=== PATIENT | female | born 1970 | race Caucasian/White ===

== ENCOUNTER 2017-10-11 12:17 | Emergency (ER) | payer MEDICARE ==
[2017-10-11] MEDS ORDERED: Ketorolac 30 MG/ML SDV IVPUSH ONE (13:14)
[2017-10-11] MEDS ORDERED: methylPREDNISolone Sodium Succinate 125 MG/2 ML SDV IVPUSH ONE (13:14)
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
== END 2017-10-11 14:16 | disposition home or self-care (01) ==
LOC: JP.ED 12:17
DX: M54.2 Cervicalgia (principal); F41.9 Anxiety disorder, unspecified; G89.29 Other chronic pain; Z88.5 Allergy status to narcotic agent; Z88.8 Allergy status to other drugs, medicaments and biological substances
CPT/HCPCS: 96374; 99283; J2930

== ENCOUNTER 2019-11-28 06:39 | Day surgery (SDC) | payer MEDICARE, OTHER ==
[2019-11-28] MEDS ORDERED: fentaNYL 100 MCG/2 ML SDV ONE (06:47)
[2019-11-28] MEDS ORDERED: Midazolam 1 MG/ML 2 ML SDV ONE (06:47)
[2019-11-28] MEDS ORDERED: Propofol 200 MG/20 ML SDV ONE (06:47)
[2019-11-28] MEDS ORDERED: Lactated Ringers 1,000 ML IV SCH (08:00)
[2019-11-28] MEDS ORDERED: Glycopyrrolate 0.2 MG/ML 2 ML SDV IVPUSH ONE (08:00)
[2019-11-28] MEDS ORDERED: Cyanocobalamin (Vitamin B12) 1,000 MCG/ML SDV IM ONE (08:00)
[2019-11-28] MEDS ORDERED: MVI, Adult with Vitamin K 10 ML, Thiamine 200 MG, Chromium/Copper/Mang/Selen/Zn 1 ML in... IV ONE ×4 (09:00)
[2019-11-28] MEDS ORDERED: Famotidine 20 MG/2 ML SDV IVPUSH PRN (09:26)
[2019-11-28] MEDS ORDERED: diphenhydrAMINE 50 MG/ML SDV IVPUSH PRN (10:30)
[2019-11-28] MEDS ORDERED: Iron Sucrose Complex 500 MG in Sodium Chloride 0.9% 250 ML IV ONE (10:30)
[2019-11-28] MEDS ORDERED: Hydrocortisone Sodium Succinate 100 MG/2 ML SDV IVPUSH PRN (10:30)
[2019-11-28] MEDS ORDERED: Sodium Chloride 0.9% 1,000 ML IV SCH (10:45)
--- NOTE | 2019-12-08 14:58 | OR ---
DATE OF PROCEDURE: 11/28/2019 SURGEON: Greg Carranza MD PREOPERATIVE DIAGNOSIS: Postprandial abdominal pain. POSTOPERATIVE DIAGNOSIS: Postprandial abdominal pain with a small patch of mild pouch gastritis. OPERATIVE PROCEDURE: Upper gastrointestinal endoscopy with biopsy of gastric pouch for CLOtest. ANESTHESIA: IV sedation. INDICATION FOR PROCEDURE: This is a 49-year-old status post open Mic-en-Y gastric bypass in 1997, at what was [facility] and now [facility]. This was done with an open approach. The patient did complain of some postprandial upper and mid abdominal pain. She has been on Protonix and noted no significant improvement of symptoms while on that medication. Plan is to proceed with initial upper GI endoscopy with biopsies as indicated. Potential risks including bleeding and perforation were discussed, and the patient wishes to proceed. DETAILS OF PROCEDURE: The patient was taken to the operating room and placed in a left lateral decubitus position. IV sedation was administered after which the upper GI endoscope was passed orally through the length of the esophagus into the gastric pouch and from there through the gastrojejunostomy roughly 20 cm into the Mic limb. Findings included normal larynx, hypopharynx, and upper esophageal sphincter, as well as esophageal body. No significant inflammation noted at the esophagogastric junction. Within the gastric pouch, there was a small, perhaps 1 cm, patch with some very mild redness and otherwise the gastrojejunostomy was wide open, and there were no further areas inflammation from that point and into the Mic limb. At this point, biopsies were obtained from the antrum and sent for CLOtest for H. pylori. Minimal bleeding from the biopsy site was seen and the procedure then concluded. As discussed with the patient, postoperatively, the postprandial abdominal pain that she is having most likely is related to partial small bowel obstruction, and these will often be missed by a CT scan of the abdomen, and at this point, and empiric exploration would be generally the next approach. This was discussed with the patient, and the plan will be to proceed with an exploratory laparotomy next Sunday and try to identify any points of partial obstruction and make corrections as indicated. This will need to be done as an open approach, as Dr. Macedo's gastric bypass is in that area, although retrocolic and retrogastric in that area of the Mic limb is not reasonably approachable via laparoscopic approach. Greg Carranza MD /[id number]
== END 2019-11-28 12:15 | disposition home or self-care (01) ==
LOC: JP.SDS 06:39
PROVIDERS: ATTEND Surgery
DX: K29.70 Gastritis, unspecified, without bleeding (principal); Z98.84 Bariatric surgery status
CPT/HCPCS: 43239; 87081; J2250; J2704; J3010; J3411; J3420; J3490; J7030; J7050; J7120; Q0138; J1756

== ENCOUNTER 2020-04-03 21:31 | Inpatient (IN) | payer MEDICARE, OTHER ==
[2020-04-03] MEDS ORDERED: Ondansetron 4 MG/2 ML SDV IVPUSH PRN (22:20)
[2020-04-03] MEDS: HYDROmorphone 0.5 MG/0.5 ML Syringe IVPUSH PRN (23:26)
[2020-04-03] MEDS: LORazepam 2 MG/ML SDV IVPUSH PRN (23:27)
[2020-04-03] MEDS: Metoclopramide 10 MG/2 ML SDV IV SCH (23:30)
[2020-04-04] MEDS: LORazepam 2 MG/ML SDV IVPUSH PRN (01:55)
[2020-04-04] MEDS: HYDROmorphone 0.5 MG/0.5 ML Syringe IVPUSH PRN ×2 (01:56→05:25)
[2020-04-04] MEDS: Metoclopramide 10 MG/2 ML SDV IV SCH (05:18)
[2020-04-04] MEDS: Dextrose 5%-Lactated Ringers 1,000 ML IV SCH ×2 (06:15→06:17)
[2020-04-04] MEDS ORDERED: Albuterol 8 GM Inhaler INH PRN (07:09)
[2020-04-04] MEDS ORDERED: LORazepam 1 MG Tab PO PRN (07:09)
[2020-04-04] MEDS ORDERED: Amphetamine/Dextroamphetamine Salts 10 MG Tab PO SCH ×3 (07:15→13:00)
[2020-04-04] MEDS ORDERED: Glycopyrrolate 0.2 MG/ML 2 ML SDV IVPUSH ONE (09:00)
[2020-04-04] MEDS ORDERED: Ziprasidone HCl 20 MG Cap PO SCH (09:00)
[2020-04-04] MEDS ORDERED: buPROPion 100 MG Tab.SR PO SCH (09:00)
[2020-04-04] MEDS ORDERED: cloNIDine 0.1 MG Tab PO SCH (09:00)
[2020-04-04] MEDS ORDERED: Pantoprazole 40 MG Vial IVPUSH SCH (09:00)
[2020-04-04] MEDS ORDERED: fentaNYL 100 MCG/2 ML SDV ONE (09:05)
[2020-04-04] MEDS ORDERED: Midazolam 1 MG/ML 2 ML SDV ONE (09:05)
[2020-04-04] MEDS ORDERED: Propofol 200 MG/20 ML SDV ONE (09:05)
[2020-04-04] MEDS ORDERED: Acetaminophen 325 MG Tab PO PRN (09:44)
--- NOTE | 2020-04-04 10:05 | HP ---
HISTORY OF PRESENT ILLNESS: Racquel was transferred by ambulance from the [facility] Emergency Department last evening. She reports that she ate steak on 04/02/2020 and it got stuck. She states that she has been sipping on water and everything she drinks she will vomit it up. She did try water with baking soda and chicken noodle soup and she was not able to swallow that. She presented to the emergency department in [place] with increased nausea and vomiting. In the emergency room, she did have a CT scan which showed fluid-filled dilated esophagus and stomach. Oral contrast given would traverse to GI tract, but she was only able to swallow a small amount of oral contrast. There was no mention of her having a Mic-en-Y gastric bypass surgery. This morning, Racquel states that she is feeling better. She has been just using a sponge to moisten her mouth. Reports not able to take her vitamins for several weeks and has not been able to take any of her antibiotics for H. pylori and any of her routine medications for 3 to 4 days. Reports doing yard work and getting extremely dehydrated. Racquel is scheduled for an exploratory laparotomy with release of partial small bowel obstruction, removal of remnant stomach, for chronic H. pylori refractory to medical management on 04/06/2020. She has had a preop physical. History of Mic-en-Y gastric bypass surgery 1997 at [facility]. Preop weight 239, current weight is 131 pounds 9 ounces. CURRENT MEDICATIONS: Protonix 20 mg, she takes 2 b.i.d.; albuterol inhaler 1 to 2 puffs every 4 hours p.r.n. shortness of breath; Flagyl 250 mg 1 tablet twice daily; doxycycline 100 mg b.i.d. 14 days; Gaviscon 15 to 30 mL by mouth 3 times a day after meals p.r.n.; Carafate 1 tablet before meals 4 times a day and at bedtime; Vitron-C 1 tablet b.i.d.; Flexeril 10 mg 3 times a day p.r.n. muscle spasms; Lamisil 1 tab by mouth every day for fungal infection of nail; Zofran 4 mg 1 tablet every 8 hours p.r.n. nausea; Imitrex 100 mg 1 tablet once a day as needed for migraine, may repeat in 2 hours; Penlac 8% apply topical evenly over nail at bedtime; hydrocortisone 1% cream apply topical twice daily p.r.n.; clonidine; Catapres 0.1 mg once daily; bupropion 100 mg by mouth b.i.d., Geodon 40 mg by mouth once daily; Adderall 20 mg by mouth once a day to avoid insomnia and Adderall 10 mg in the afternoon for insomnia; multivitamin 1000 mg once daily; B12 injection 1000 mcg IM as directed. ALLERGIES: TO CLINDAMYCIN, BACLOFEN, KLONOPIN, CLONAZEPAM, CODEINE, TRAMADOL. PAST MEDICAL HISTORY: Anxiety; ADHD, combined type; bipolar disorder, current episode moderate; dermatophytosis; GERD; history of Mic-en-Y gastric bypass surgery; unspecified surgical malabsorption; B12 deficiency; migraine headaches; neck pain; vitamin B12 deficiency; vitamin D deficiency, and H. pylori refractory to medical management. PAST SURGICAL HISTORY: Appendectomy, 2 C-sections, multiple EGDs, her last EGD was 11/28/2019, gastric bypass surgery, LEEP procedure, wrist fracture with reduction, open fixation, 07/31/2008. SOCIAL HISTORY: , unemployed, has 1 son aged 10. FAMILY MEDICAL HISTORY: Diabetes, hypertension, sleep apnea in mother. Father has diabetes. Brother, hypertension. Breast cancer, paternal grandmother. REVIEW OF SYSTEMS: Reports weight loss, inability to eat or drink very well for the last 2 weeks, not able to take medications including prescription and recommended vitamins after gastric bypass surgery on a regular basis for several months. CONSTITUTIONAL: No fever, chills, or night sweats. SKIN: No rashes, changes in moles or birthmarks. HEENT: No recent headache, ear pain, loss of hearing, blurred or double vision. CARDIOVASCULAR: No chest pain, palpitation. RESPIRATORY: No cough, shortness of breath. ENDOCRINE: Negative. HEMATOLOGICAL: Iron-deficiency anemia, recently had iron infusions. LYMPH: Denies any lymph node swelling. : Has no UTI signs and symptoms. Heavy abnormal period. She is scheduled to have endometrial ablation scheduled for the end of March. MUSCULOSKELETAL: Fibromyalgia, chronic pain, neck pain. NEUROLOGICAL: Migraine headaches. No history of focal neurological symptoms, spells, memory changes. PSYCHIATRIC: History of benzodiazepine dependence, social anxiety, ADHD, bipolar affective disorder. Remainder of review of systems negative for any pertinent positives or negatives. DIET: Has been on a step 4 gastric bypass diet. Last had anything to eat on 04/02/2020. Protein normally unknown. Exercise minimal. Fluids, drinks 4 bottles of water a day. Smoking: Smokes up to 1 pack a day. Caffeine: Negative. Alcohol: None. Carbonation: None. OBJECTIVE: GENERAL: Racquel Vega is a 49-year-old female. VITAL SIGNS: Height 5 feet 5 inches, weight is 131 pounds. BMI is 21. TPR at 0500; 96.2, 65, 16. Blood pressure 106/69. HEENT: Negative. NECK: Supple. HEART: Regular rate and rhythm. LUNGS: Clear. ABDOMEN: Soft, nontender. EXTREMITIES: Without peripheral edema. NEUROLOGIC: Intact. SKIN: Without rash. PSYCHIATRIC: Mood and affect appropriate. ASSESSMENT: 1. Foreign body in esophagus causing dysphagia, symptoms of nausea and vomiting. 2. H. pylori infection. 3. Small bowel obstruction. 4. Postoperative malabsorption. 5. Gastroesophageal reflux disease. 6. Status post Mic-en-Y gastric bypass surgery. 7. Low ferritin. 8. Vitamin B complex deficiency. 9. Vitamin D deficiency. 10.Vitamin B12 deficiency. 11.Smoking history. 12.Benzodiazepine dependence. 13.Bipolar disorder. 14.Central pain syndrome. 15.Fibromyalgia. 16.Anxiety. 17.Attention-deficit/hyperactivity disorder. 18.Dehydration. PLAN: 1. Schedule EGD with IV and local sedation. Case to follow 04/04/2020. Surgeon, Filiberto Degroot MD. Time to be determined. 2. Rx Robinul 0.4 mg IV on-call to OR. 3. Remain n.p.o. 4. Lactated Ringer with multivitamins 1 L daily. 5. Protonix 40 mg IV b.i.d. 6. After EGD and when patient is able to swallow without any difficulty to start home medication Adderall 20 mg in a.m. and 10 mg in the afternoon, Wellbutrin 100 mg p.o. b.i.d., Catapres, clonidine 0.1 mg daily, Geodon 40 mg p.o. daily, sumatriptan 100 mg p.o. p.r.n. migraine headache. The patient was admitted for inpatient hospital stay, approximately 4 nights 5 days depending on her postop progress. Felicita Meeks PA-C /[id number]
[2020-04-04] MEDS ORDERED: MVI, Adult with Vitamin K 10 ML, Thiamine 200 MG, Chromium/Copper/Mang/Selen/Zn 1 ML in... IV ONE ×4 (10:30)
--- NOTE | 2020-04-04 11:28 | CONS ---
DATE OF SERVICE: 04/03/2020 REFERRING PHYSICIAN: Felicita Meeks PA-C CONSULTING PHYSICIAN: Filiberto Degroot MD REASON FOR CONSULTATION: Abdominal pain. HISTORY OF PRESENT ILLNESS: This is a pleasant 49-year-old female who had a Mic-en-Y in 1998 in [place], [place]. She has had intermittent problems with this including abdominal pain. The patient is being evaluated for possible revision Mic-en-Y. She is also complicated by multiple events of H. pylori. On December 05, 2019, the patient underwent upper GI without significant abnormalities. Her pain is described as 1 to 2 out of 10, intermittent. PAST MEDICAL HISTORY: Mic-en-Y gastric bypass, history of section. REVIEW OF SYSTEMS: GENERAL: The patient is appropriate for her condition. HEENT: No symptoms. CARDIOVASCULAR: No history of myocardial infarction. RESPIRATORY: No shortness of breath. GASTROINTESTINAL: As above. GENITOURINARY: No abnormalities. MUSCULOSKELETAL: The patient has had some neck issues requiring her to be addressed in the emergency room. The remainder of review of systems was reviewed and is negative. PHYSICAL EXAMINATION: VITAL SIGNS: Temperature 97.3, blood pressure 119/71, pulse 64, respirations 16, 99% on room air. HEENT: Pupils are equal. NECK: Supple. LUNGS: Clear. CARDIOVASCULAR: Regular rhythm and rate. ABDOMEN: Minimal pain with palpation. No distention. No rebound. No guarding. EXTREMITIES: Full range of motion. NEUROLOGICAL: Oriented x3. PSYCHIATRIC: No gross depression. LABORATORY DATA: None ordered. ASSESSMENT/PLAN: The patient was taken to the operating room in the morning for EGD with dilation for possible foreign material. We discussed risks, benefits, alternatives, and limitations including, but not limited to infection, bleeding, perforation, requirement for reoperation. The patient understands these risks and wishes to proceed. Filiberto Degroot MD /[id number]
--- NOTE | 2020-04-05 08:31 | OR ---
DATE OF PROCEDURE: 04/04/2020 SURGEON: Filiberto Degroot MD PROCEDURE: EGD. FINDINGS: 1. Normal Mic-en-Y with slightly enlarged, but appropriate-sized pouch without evidence of abnormality. 2. No foreign material. COMPLICATION: None. GRINDING ROOM SUPERVISOR: None. PREOPERATIVE DIAGNOSIS: Dysphagia, concern for retained food material. POSTOPERATIVE DIAGNOSIS: Dysphagia, concern for retained food material. RISKS: Risks, benefits, alternatives, and limitations including, but not limited to infection, bleeding, and perforation were explained to the patient, who wished to proceed. PROCEDURE IN DETAIL: The patient was placed in left lateral decubitus position. The EGD scope was introduced and advanced atraumatically to the Mic-en-Y limb. The Mic-en-Y limb appeared viable, healthy without evidence of abnormality. The pouch itself was appropriately-sized. There was no evidence of narrowing, stricturing, or abnormality. No marginal ulcer. No old or new blood. No signs of Spivey's esophagus or abnormality at the GE junction. Within the esophagus itself, there was no evidence of retained foreign material. No other abnormalities were noted. The patient tolerated the procedure well. Filiberto Degroot MD /[id number]
--- NOTE | 2020-04-06 08:28 | DISCH ---
ADMISSION DIAGNOSES: 1. Dysphagia, foreign body. 2. Status post Mic-en-Y gastric bypass surgery. 3. Unspecified malabsorption. 4. Chronic Helicobacter pylori. 5. Partial small bowel obstruction. DISCHARGE DIAGNOSIS: Esophagogastroduodenoscopy with Filiberto Degroot, 04/04/2020. HISTORY: Racquel Vega presented to the emergency room in [facility] [place] [facility] was transferred to the [facility] after she said she got a piece of steak stuck. She tried for over 24 hours and continued to vomit anything that she would eat or drink. HOSPITAL COURSE: Racquel had an EGD, and it was normal. Mic-en-Y with slightly large, but appropriate-size pouch without evidence of abnormality. No foreign body. She elected to be discharged to home after the procedure stating she felt better, and she will return on Sunday04/06/2020, for already scheduled surgery. PHYSICAL EXAMINATION: GENERAL: Racquel Vega is a 49-year-old female. VITAL SIGNS: Height 5 feet 5 inches, weight is 131 pounds. TPR 96, 70, 18, and blood pressure 112/70. HEENT: Negative. NECK: Supple. HEART: Regular rate and rhythm. LUNGS: Clear. ABDOMEN: Soft and nontender. EXTREMITIES: Negative. DISPOSITION: Discharged to home. CONDITION: Stable and improving. DISCHARGE INSTRUCTIONS: Follow up for scheduled surgery on 04/06/2020. The patient to be n.p.o. Resume home medications. May shower. Normal activity, and continue with step 2 gastric bypass diet. To follow up p.r.n. if any further nausea, vomiting, fever, or chills.
== END 2020-04-04 12:11 | disposition home or self-care (01) | DRG 389 ==
LOC: JP.MS 21:31
PROVIDERS: ADMIT Surgery; ATTEND Surgery
PROC: 0DJ08ZZ Inspection of Upper Intestinal Tract, Via Natural or Artificial Opening Endoscopic (ICD-10-PCS; principal; 2020-04-03)
DX: K56.600 Partial intestinal obstruction, unspecified as to cause (principal); K91.2 Postsurgical malabsorption, not elsewhere classified; A04.8 Other specified bacterial intestinal infections; E86.0 Dehydration; R13.10 Dysphagia, unspecified; F41.9 Anxiety disorder, unspecified; F90.9 Attention-deficit hyperactivity disorder, unspecified type; F31.9 Bipolar disorder, unspecified; K21.9 Gastro-esophageal reflux disease without esophagitis; E55.9 Vitamin D deficiency, unspecified; E53.8 Deficiency of other specified B group vitamins; M79.7 Fibromyalgia; Z88.1 Allergy status to other antibiotic agents; Z88.5 Allergy status to narcotic agent; Z88.6 Allergy status to analgesic agent; Z88.8 Allergy status to other drugs, medicaments and biological substances; Z98.84 Bariatric surgery status; Z79.899 Other long term (current) drug therapy; Z87.891 Personal history of nicotine dependence
CPT/HCPCS: A9270-GY; C9113; J1170; J2060; J2250; J2704; J2765; J3010; J3411; J7120; J7121

== ENCOUNTER 2020-04-06 06:57 | Inpatient (IN) | payer MEDICARE, OTHER ==
[~2020-04-06 06:57] MED LIST: Bupivacaine 0.5% 50 ML MDV ONE; Lidocaine 1% with EPINEPHrine 1:100,000 50 ML MDV ONE; Meropenem 500 MG SDV ONE
[2020-04-06] MEDS ORDERED: Neostigmine Methylsulfate 1 MG/ML 5 ML Syringe ONE (07:04)
[2020-04-06] MEDS ORDERED: Dexamethasone 4 MG/ML SDV ONE (07:04)
[2020-04-06] MEDS ORDERED: Succinylcholine 200 MG/10 ML MDV ONE (07:04)
[2020-04-06] MEDS ORDERED: Rocuronium 50 MG/5 ML Vial ONE ×2 (07:04→08:09)
[2020-04-06] MEDS ORDERED: Ondansetron 4 MG/2 ML SDV ONE (07:04)
[2020-04-06] MEDS ORDERED: Glycopyrrolate 0.2 MG/ML 5 ML MDV ONE (07:04)
[2020-04-06] MEDS ORDERED: Propofol 200 MG/20 ML SDV ONE (07:04)
[2020-04-06] MEDS ORDERED: fentaNYL 250 MCG/5 ML SDV ONE ×2 (07:05→09:20)
[2020-04-06] MEDS ORDERED: Albuterol/Ipratropium 3.0-0.5 MG/3 ML Neb Soln NEB ONE (07:31)
[2020-04-06] MEDS ORDERED: Acetaminophen 500 MG Tab PO ONE (07:31)
[2020-04-06] MEDS: Dextrose 5%-Lactated Ringers 1,000 ML IV SCH ×3 (08:15→22:22)
[2020-04-06] MEDS ORDERED: cefOXitin 2 GM in Sodium Chloride 0.9% 50 ML IV ONE (08:30)
[2020-04-06] MEDS ORDERED: Ketamine 50 MG in Sodium Chloride 0.9% 49.5 ML IV SCH (08:45)
[2020-04-06] MEDS ORDERED: Ketamine 500 MG/5 ML MDV IV SCH (08:45)
[2020-04-06] MEDS ORDERED: Magnesium Sulfate 2 GM in Sodium Chloride 0.9% 100 ML IV SCH (08:45)
[2020-04-06] MEDS ORDERED: Ropivacaine 30 ML, dexAMETHasone 8 MG, EPINEPHrine 0.4 MG, Sodium Chloride 0.9% 47.6 ML NERVRT SCH ×4 (08:45)
[2020-04-06] MEDS ORDERED: Ondansetron 4 MG/2 ML SDV IVPUSH PRN (09:09)
[2020-04-06] MEDS ORDERED: diphenhydrAMINE 50 MG/ML SDV IVPUSH PRN (09:09)
[2020-04-06] MEDS ORDERED: Naloxone 0.4 MG/ML SDV IVPUSH PRN (09:09)
[2020-04-06] MEDS ORDERED: diphenhydrAMINE 25 MG Cap PO PRN (09:09)
[2020-04-06] MEDS: HYDROmorphone/Normal Saline 15 MG/30 ML PCA IV PRN (09:48)
[2020-04-06] MEDS ORDERED: Naloxone 0.4 MG/ML SDV IV PRN (10:00)
[2020-04-06] MEDS ORDERED: Lactated Ringers 1,000 ML ONE (10:05)
[2020-04-06] MEDS ORDERED: Labetalol 20 MG/4 ML Syringe ONE (10:08)
[2020-04-06] MEDS ORDERED: hydrOXYzine HCL 100 MG/2 ML SDV IM ONE (11:18)
[2020-04-06] MEDS ORDERED: fentaNYL 100 MCG/2 ML SDV IVPUSH ONE (11:33)
[2020-04-06] MEDS ORDERED: Calcium Gluconate 10% 1 GM/10 ML SDV IVPUSH PRN (13:00)
[2020-04-06] MEDS ORDERED: Metoclopramide 10 MG/2 ML SDV IVPUSH PRN (13:00)
[2020-04-06] MEDS ORDERED: Labetalol 20 MG/4 ML Syringe IVPUSH PRN (13:00)
[2020-04-06] MEDS ORDERED: Acetaminophen 500 MG Tab PO PRN (13:00)
[2020-04-06] MEDS ORDERED: Albuterol/Ipratropium 3.0-0.5 MG/3 ML Neb Soln INH PRN (13:00)
[2020-04-06] MEDS ORDERED: hydrOXYzine HCL 100 MG/2 ML SDV IM PRN (13:00)
[2020-04-06] MEDS: Ondansetron 4 MG/2 ML SDV IVPUSH PRN ×2 (13:35→19:36)
[2020-04-06] MEDS: cefOXitin 2 GM in Sodium Chloride 0.9% 50 ML IV SCH ×2 (13:38→19:49)
[2020-04-06] MEDS ORDERED: Scopolamine 1.5 MG Transdermal Patch TOP SCH (14:00)
[2020-04-06] MEDS: Albuterol/Ipratropium 3.0-0.5 MG/3 ML Neb Soln INH SCH ×2 (14:09→21:59)
[2020-04-06] MEDS: Acetaminophen 500 MG Tab PO SCH (15:54)
[2020-04-06] MEDS ORDERED: Pantoprazole 40 MG Vial IVPUSH SCH (16:00)
[2020-04-06] MEDS ORDERED: MVI, Adult with Vitamin K 10 ML, Thiamine 200 MG, Chromium/Copper/Mang/Selen/Zn 1 ML in... IV SCH ×4 (16:00)
[2020-04-06] MEDS: Heparin Sodium 5,000 Units/ML Vial SUBCUT SCH (19:47)
[2020-04-06] MEDS: Cyclobenzaprine 10 MG Tab PO PRN (20:41)
[2020-04-06] MEDS: diphenhydrAMINE 50 MG/ML SDV IVPUSH PRN (20:51)
[2020-04-06] MEDS: LORazepam 1 MG Tab PO PRN (20:51)
[2020-04-06] MEDS: buPROPion 100 MG Tab.SR PO SCH (22:24)
[2020-04-07] MEDS: Acetaminophen 500 MG Tab PO SCH ×3 (01:15→16:31)
[2020-04-07] MEDS: cefOXitin 2 GM in Sodium Chloride 0.9% 50 ML IV SCH ×2 (01:23→09:30)
[2020-04-07] MEDS: diphenhydrAMINE 50 MG/ML SDV IVPUSH PRN (02:06)
[2020-04-07] MEDS: Ondansetron 4 MG/2 ML SDV IVPUSH PRN (02:06)
[2020-04-07] MEDS ORDERED: Iopamidol 612 MG/ML 50 ML SDV PO STA (03:46)
[2020-04-07] MEDS: Dextrose 5%-Lactated Ringers 1,000 ML IV SCH ×2 (04:41→11:31)
[2020-04-07] MEDS: HYDROmorphone/Normal Saline 15 MG/30 ML PCA IV PRN (06:11)
[2020-04-07] MEDS ORDERED: diphenhydrAMINE 25 MG Cap PO PRN (06:59)
[2020-04-07] MEDS ORDERED: Ondansetron 4 MG/2 ML SDV IVPUSH PRN (06:59)
[2020-04-07] MEDS ORDERED: Naloxone 0.4 MG/ML SDV IVPUSH PRN (06:59)
[2020-04-07] MEDS ORDERED: diphenhydrAMINE 50 MG/ML SDV IVPUSH PRN (06:59)
[2020-04-07] MEDS ORDERED: HYDROmorphone/Normal Saline 15 MG/30 ML PCA IV PRN (07:00)
[2020-04-07] MEDS: Albuterol/Ipratropium 3.0-0.5 MG/3 ML Neb Soln INH SCH ×4 (07:18→20:29)
[2020-04-07] MEDS: Ondansetron 4 MG Tab.DIS PO PRN (07:42)
[2020-04-07] MEDS: Cyclobenzaprine 10 MG Tab PO PRN ×2 (07:44→16:26)
--- NOTE | 2020-04-07 08:20 | PN ---
DATE OF SERVICE: 04/07/2020 SUBJECTIVE: Racquel is postoperative day #1. Vital signs have been stable. Oral intake 310. On a step 1 gastric bypass diet. Betancur catheter put out 2425 and CHIRAG drain put out 70 mL of a light red drainage. Having difficulty with pain control, requesting increase in her RECOVERY OPERATOR HELPER. She does look quite uncomfortable. Currently sitting up in the chair. OBJECTIVE: GENERAL: Racquel Vega is a 49-year-old female, looking uncomfortable as stated above. VITAL SIGNS: TPR at 0203, 97.6; 60; 16; blood pressure 100/70. HEENT: Negative. NECK: Supple. HEART: Regular rate and rhythm. LUNGS: Clear. ABDOMEN: Dressing dry and intact. Abdominal binder is on and CHIRAG drain intact. EXTREMITIES: Without peripheral edema. ASSESSMENT: 1. Exploratory laparotomy with lysis of adhesions. a. Total gastrectomy with Mic-en-Y reconstruction. b. Small bowel resection. c. Secondary enteroenterostomy to restore small bowel Mic-en-Y anatomy. d. Removal of intraperitoneal foreign body. e. Repair of incarcerated incisional hernia. POSTOPERATIVE DIAGNOSES: 1. Partial small bowel obstruction secondary to small bowel intussusception at the jejunojejunostomy. 2. Persistent H pylori infection. 3. Incarcerated incisional hernia. 4. Intraperitoneal foreign body, silastic ring over stomach. 5. Date of procedure: 04/06/2020. Surgeon: Greg Carranza MD. PLAN: 1. Decrease IV to 100 mL per hour. 2. Discontinue Betancur catheter. 3. Step 2 gastric bypass diet without cereal. 4. Increase RECOVERY OPERATOR HELPER to Dilaudid 15 mg in normal saline. Loading dose 0. RECOVERY OPERATOR HELPER setting 0.4 mg. Basal rate 0. Lockout interval 10. 4-hour limit is 9.6 mg. 5. Continue use of incentive spirometer and ambulation. 6. We will evaluate p.r.n. or in a.m. Felicita Meeks PA-C /[id number]
[2020-04-07] MEDS: HYDROmorphone 2 MG Tab PO PRN ×4 (08:24→22:04)
[2020-04-07] MEDS ORDERED: TERBINAFINE 250 MG PO SCH (09:00)
--- NOTE | 2020-04-07 09:09 | CR ---
UGI Limited HISTORY: Postbariatric surgery FINDINGS: Patient swallowed water-soluble contrast. Upright views of the abdomen show no evidence of extravasation or obstruction. There is a drainage tube in the upper abdomen. IMPRESSION: Status post bariatric surgery No extravasation or obstruction seen
[2020-04-07] MEDS: buPROPion 100 MG Tab.SR PO SCH ×3 (09:33→20:32)
[2020-04-07] MEDS: cloNIDine 0.1 MG Tab PO SCH (09:33)
[2020-04-07] MEDS: Ziprasidone HCl 20 MG Cap PO SCH (09:37)
[2020-04-07] MEDS: SCOPOLAMINE PATCH CHECK TOP SCH (09:38)
[2020-04-07] MEDS: Nicotine 21 MG/24 Hr Patch TRDERM SCH (09:38)
[2020-04-07] MEDS: Heparin Sodium 5,000 Units/ML Vial SUBCUT SCH ×2 (09:39→20:29)
[2020-04-07] MEDS: Amphetamine/Dextroamphetamine Salts 10 MG Cap.ER PO SCH (09:46)
[2020-04-07] MEDS: LORazepam 1 MG Tab PO PRN ×2 (12:35→22:21)
[2020-04-07] MEDS ORDERED: MVI, Adult with Vitamin K 10 ML, Thiamine 200 MG, Chromium/Copper/Mang/Selen/Zn 1 ML in... IV SCH ×4 (16:00)
[2020-04-07] MEDS ORDERED: Pantoprazole 40 MG Delayed-Release Granules 1 Packet PO SCH (16:30)
[2020-04-08] MEDS: Acetaminophen 500 MG Tab PO SCH ×2 (00:50→07:17)
[2020-04-08] MEDS: Cyclobenzaprine 10 MG Tab PO PRN (00:51)
[2020-04-08] MEDS: Dextrose 5%-Lactated Ringers 1,000 ML IV SCH (02:56)
[2020-04-08] MEDS: Ondansetron 4 MG Tab.DIS PO PRN (04:35)
[2020-04-08] MEDS: HYDROmorphone 2 MG Tab PO PRN ×2 (04:36→08:21)
[2020-04-08] MEDS: Amphetamine/Dextroamphetamine Salts 10 MG Cap.ER PO SCH ×2 (07:16→08:23)
[2020-04-08] MEDS: Heparin Sodium 5,000 Units/ML Vial SUBCUT SCH (07:18)
[2020-04-08] MEDS: Albuterol/Ipratropium 3.0-0.5 MG/3 ML Neb Soln INH SCH ×2 (07:44→10:38)
[2020-04-08] MEDS: cloNIDine 0.1 MG Tab PO SCH (08:37)
[2020-04-08] MEDS: Ziprasidone HCl 20 MG Cap PO SCH (08:37)
[2020-04-08] MEDS: buPROPion 100 MG Tab.SR PO SCH (08:37)
[2020-04-08] MEDS: Nicotine 21 MG/24 Hr Patch TRDERM SCH (08:38)
[2020-04-08] MEDS: SCOPOLAMINE PATCH CHECK TOP SCH (08:38)
[2020-04-08] MEDS ORDERED: Magnesium Hydroxide 400 MG/5 ML Susp 30 ML Cup PO PRN (09:00)
[2020-04-08] MEDS ORDERED: Cyanocobalamin (Vitamin B12) 1,000 MCG/ML SDV IM ONE (09:00)
--- NOTE | 2020-04-08 13:15 | DISCH ---
ADMISSION DIAGNOSES: Partial small bowel obstruction, chronic Helicobacter pylori, unspecified surgical malabsorption, B12 deficiency, history of Mic-en-Y gastric bypass surgery, iron deficiency anemia, required intravenous iron supplement, attention deficit hyperactivity disorder, chronic neck pain, bipolar affective disorder, dermatophytosis, history of migraine, fibromyalgia, central pain syndrome, benzodiazepine dependence, mild facial pain, abnormal uterine bleeding. DISCHARGE DIAGNOSES: Exploratory laparotomy with lysis of adhesions: 1. Total gastrectomy with Mic-en-Y reconstruction. 2. Small bowel resection. 3. Secondary enteroenterostomy to restore small bowel Mic-en-Y anatomy. 4. Removal of intraperitoneal foreign body. 5. Repair of incarcerated incisional hernia. POSTOPERATIVE DIAGNOSES: 1. Partial small bowel obstruction secondary to small bowel intussusception at the jejunojejunostomy. 2. Persistent Helicobacter pylori infection. 3. Incarcerated incisional hernia. 4. Intra-abdominal foreign body, silastic ring over stomach. Date of procedure 04/06/2020. Surgeon: Greg Carranza MD. HISTORY: Racquel Vega is a pleasant 49-year-old female who has had chronic H pylori associated with postprandial abdominal pain, nausea, and vomiting. After preoperative evaluation, discussion of possible risks and possible complications, she wished to proceed with surgical procedure. HOSPITAL COURSE: Racquel had her surgery on 04/06/2020. She had no operative complications. On postop day 1, her Betancur catheter was discontinued. She was started on a step 2 gastric bypass diet without cereal. Her pain was not controlled. Originally, the FILENET DEVELOPER was increased, but before that got started, Racquel asked about starting oral pain medication. She was started on Dilaudid 2 to 4 mg and this, along with Flexeril, managed her pain. Vital signs remained stable. She was afebrile. Oral intake 1430. Urine output 1200. CHIRAG drain put out 20 mL of a light pink drainage. Her activity was good. She was able to be discharged to home on postop day 2 without any complications. She did receive dietary instructions prior to discharge. PHYSICAL EXAMINATION: GENERAL: Racquel Vega is a 49-year-old female. VITAL SIGNS: Height is 5 feet 5 inches, weight is 131 pounds. TPR at 0702, 98.1, 92, 18, blood pressure 127/66. HEENT: Negative. NECK: Supple. HEART: Regular rate and rhythm. LUNGS: Clear. ABDOMEN: CHIRAG drain is intact, but will be removed prior to discharge. She has an Aquacel dressing on, which will be changed prior to discharge and a new one will be put on. Abdominal binder has been on. EXTREMITIES: Without peripheral edema. DISPOSITION: Discharged to home. CONDITION: Stable and improving. FOLLOWUP: With Felicita Meeks PA-C, at [facility] on 04/15/2020 at 9:30 a.m. HOME PRESCRIPTIONS: Include: 1. Dilaudid 2 mg every 4 hours p.r.n. pain, #42. 2. Flexeril 10 mg every 8 hours p.r.n. muscle spasms, #30. 3. Tylenol 1000 mg every 8 hours. 4. Zofran 4 mg q.8 hours p.r.n. nausea. She is to resume her home medications. Albuterol inhaler 1 to 2 puffs every 4 hours p.r.n. shortness of breath, dextroamphetamine (Adderall ER 20 mg every morning), hydrocortisone 1 applicator topical twice a day, lorazepam 1 mg 3 times a day p.r.n. anxiety, pantoprazole 40 mg twice daily, sumatriptan 100 mg oral as directed p.r.n. migraine headaches, bupropion 100 mg oral twice daily, clonidine 0.1 mg oral daily, Geodon 40 mg oral daily. Discontinue taking vitamin D3, Vitron-C, Gaviscon, multivitamin, Carafate, metronidazole until 1st postop appointment. DIET: Step 3 gastric bypass diet for 1 month. ACTIVITY: No lifting greater than 10 pounds for 6 weeks. Other activity: Walk at least 6 times daily inside your home. Driving: Do not drive for 1 week and while on pain medication. Shower/bathing: May shower. DISCHARGE INSTRUCTIONS: Notify provider if any fever, increased pain, swelling, redness, nausea, vomiting. Keep site clean and dry. Wound incision care, take off Aquacel on 04/11/2020. Wear abdominal binder for 6 weeks. Use incentive spirometer 10 times every hour while awake.
--- NOTE | 2020-04-12 13:55 | OR ---
DATE OF PROCEDURE: 04/06/2020 SURGEON: Greg Carranza MD PREOPERATIVE DIAGNOSES: 1. Partial small bowel obstruction. 2. Persistent H pylori infection refractory to medical management. POSTOPERATIVE DIAGNOSES: 1. Partial small bowel obstruction secondary to small bowel intussusception at jejunojejunostomy. 2. Persistent H pylori infection refractory to medical management. 3. Incarcerated incisional hernia. 4. Intraperitoneal foreign body (silastic ring over stomach). OPERATIVE PROCEDURES: Exploratory laparotomy with lysis of adhesions: 1. Total gastrectomy with Mic-en-Y reconstruction (70784). 2. Small bowel resection (88882). 3. Secondary enteroenterostomy to restore small bowel Mic-en-Y anatomy (30622). 4. Removal of intraperitoneal foreign body (03103). 5. Repair of incarcerated incisional hernia (71704). ANESTHESIA: General. DOPE MIXER: Felicita Meeks PA-C INDICATIONS FOR PROCEDURE: A 49-year-old presenting status post previous Mic-en-Y gastric bypass with a picture suggestive of partial small bowel obstruction. This has been plaguing her for some time. Additionally, the patient has persistent H pylori infection which has not been able to be cleared despite multiple antibiotic courses. Given this and the fact that we will have an open abdomen, plan will be to proceed with a total gastrectomy, thus removing the problem related to chronic H pylori infection. Potential risks of the procedure including bleeding, infection, injury to underlying viscera, leaks from various GI tract closures, problems with bowel obstruction recurring over time were all reviewed, and the patient wishes to proceed. DETAILS OF PROCEDURE: The patient was taken to the operating room. After general endotracheal anesthesia was induced, a Betancur catheter was inserted and the abdomen prepped and draped. A midline incision from the umbilicus roughly a handsbreadth towards the xiphoid was made and carried down through the full-thickness abdominal wall. This was eventually extended somewhat superiorly in order to gain access to the gastric fundus. Upon entering the peritoneal cavity, there were fairly extensive adhesions between the small bowel, omentum, and area around the previous gastrojejunostomy, gastric pouch formation were taken down. During the course of the dissection, a silastic ring which had been electively placed previously to allow gastrostomy tube insertion percutaneously, should that be necessary, was encountered and this was excised. During the course of the entrance of the abdomen, a trocar site hernia, which contained some incarcerated preperitoneal fat and a tongue of omentum, were encountered, and this was excised as well. Inspection of small bowel at this point showed marked distention of the biliopancreatic limb and to lesser extent, distention of the Mic limb as it entered the jejunojejunostomy, and the jejunojejunostomy was diffusely edematous and distended as well. This all would appear to be likely related to some ongoing intussusception occurring at that anastomosis, and decision was made to reconstruct that anastomosis. The three components of the small bowel entering into the jejunojejunostomy were divided with SAIDA staplers, as was the underlying mesentery, and that specimen delivered from the field. GI tract continuity was then re-established with [id number] enteroenterostomy between what had been the distal-most biliopancreatic limb to the proximal-most common limb. This was with internal firing of the Endo-SAIDA 60 mm stapler, followed by common opening closed transversely with the SAIDA stapler as well. Angles of anastomosis were reinforced with 3-0 Vicryl stitch and mesenteric defect reapproximated with 2-0 silk stitch. The Mic-en-Y anatomy was then re-established with a second anastomosis between what had been the distal- most Mic limb towards the small bowel roughly 20 cm distal to the original anastomosis with the same sequence of staplers and closure of the angles of anastomosis and mesenteric defect as per the first anastomosis. At this point, small bowel component of the procedure appeared to be satisfactorily completed. The omentum was then divided away from the greater curvature of the bypassed portion of the stomach. This allowed progressive dissection of the stomach away from the greater curvature continuing proximally to include division of the short gastric vessels. As one came up to the area of the previous gastric pouch and gastrojejunostomy, an Nirali tube was placed in order to define the edges of this area. A portion of this was resected as well, and at that point, the dissection of the stomach continued downward in a distal direction to slightly past the pylorus. Lesser omental attachments were then divided as well with SAIDA nick, and the specimen consisting of the entire stomach was then delivered from the field. This included some attached previous gastric pouch. The Mic limb was then reanastomosed to what would essentially be the distal-most esophagus with placement of a 25 mm EEA stapler anvil into the esophagus by means of this being placed down through an attached [place] sump type tube orally and being pulled down into the distal end of the esophagus. The Mic limb was then opened and main body of the EEA stapler was brought up the anvil, united with it, thus creating the esophagojejunostomy. Upon removal of the stapler, double donuts of mucosa were noted within it. The small bowel was closed off with a vascular staple line. The gastrojejunostomy was then reinforced with some 3-0 Vicryl seromuscular stitch, along with fibrin sealant. Distally, then the duodenum was divided just distal to the pylorus with a curved SAIDA black load and the total gastrectomy specimen then delivered from the field. The duodenal stump was then reinforced with some fibrin sealant, and omental patch, which was sutured over the duodenal stump as well. At this point, no further problems were noted. A Pernell-Pérez drain was taken out through the right upper abdomen and draped across the area of the duodenal stump, and from there up to the new esophagojejunostomy, and the abdomen irrigated with antibiotic-containing saline solution. No further problems were noted. The patient had adequate omentum to cover the incision and downward towards the pelvis to displace bowel from those surfaces. The midline fascia was then approximated with a #2 Vicryl stitch, subcutaneous tissue with 2 layers of 3- 0 and 4-0 Vicryl stitch, and the skin with nick. Prior to closure, bilateral transversus abdominis plane blocks were then placed and the incision was then anesthetized with 1% lidocaine mixed with Marcaine, and the patient was taken to the recovery room in satisfactory condition. There were no evident complications. Physician occupational therapist assistant, Felicita Meeks, played an essential role in assisting in this case, helping to position the patient, retract structures as needed, as well as suturing and cutting sutures when indicated. Her presence improved patient safety and decreased operative time. Greg Carranza MD /[id number]
== END 2020-04-08 11:55 | disposition home or self-care (01) | DRG 327 ==
LOC: JP.SDSSCHI 06:57 → JP.SDS 06:57 → EDSTATUS 10:45 → JP.MS 11:00
PROVIDERS: ADMIT Surgery; ATTEND Surgery
PROC: 0D150ZA Bypass Esophagus to Jejunum, Open Approach (ICD-10-PCS; principal; 2020-04-06)
PROC: 0F190ZB Bypass Common Bile Duct to Small Intestine, Open Approach (ICD-10-PCS; 2020-04-06)
PROC: 0DT60ZZ Resection of Stomach, Open Approach (ICD-10-PCS; 2020-04-06)
PROC: 0DB80ZZ Excision of Small Intestine, Open Approach (ICD-10-PCS; 2020-04-06)
PROC: 0WQF0ZZ Repair Abdominal Wall, Open Approach (ICD-10-PCS; 2020-04-06)
PROC: 0WCG0ZZ Extirpation of Matter from Peritoneal Cavity, Open Approach (ICD-10-PCS; 2020-04-06)
DX: K95.89 Other complications of other bariatric procedure (principal); K56.1 Intussusception; A04.8 Other specified bacterial intestinal infections; K43.0 Incisional hernia with obstruction, without gangrene; K91.2 Postsurgical malabsorption, not elsewhere classified; T18.2XXA Foreign body in stomach, initial encounter; F41.9 Anxiety disorder, unspecified; K21.9 Gastro-esophageal reflux disease without esophagitis; M54.2 Cervicalgia; G89.29 Other chronic pain; F31.9 Bipolar disorder, unspecified; E53.8 Deficiency of other specified B group vitamins; F98.8 Other specified behavioral and emotional disorders with onset usually occurring in childhood and adolescence; Z90.49 Acquired absence of other specified parts of digestive tract; Z79.899 Other long term (current) drug therapy; Z88.1 Allergy status to other antibiotic agents; Z88.8 Allergy status to other drugs, medicaments and biological substances; D50.9 Iron deficiency anemia, unspecified
CPT/HCPCS: 36415; 74240; 74240-26; 80053; 82607; 82728; 83735; 84100; 84703; 85027; 86850; 86900; 86901; 88300; 88302; 88307; 88342; 94640; 94762; A9270-GY; C9113; J0171; J0330; J0694; J1100; J1170; J1200; J1644; J2185; J2405; J2704; J2710; J2795; J3010; J3410; J3411; J3420; J3475; J3490; J7050; J7120; J7121; J7620-GY; Q9967

== ENCOUNTER 2021-08-09 07:51 | Day surgery (SDC) | payer MEDICARE ==
[2021-08-09] MEDS ORDERED: Midazolam 1 MG/ML 2 ML SDV ONE (07:56)
[2021-08-09] MEDS ORDERED: Propofol 200 MG/20 ML SDV ONE (07:56)
[2021-08-09] MEDS ORDERED: fentaNYL 100 MCG/2 ML SDV ONE (07:56)
[2021-08-09] MEDS ORDERED: Lactated Ringers 1,000 ML IV SCH (08:15)
[2021-08-09] MEDS ORDERED: Cyanocobalamin (Vitamin B12) 1,000 MCG/ML SDV IM ONE (08:30)
[2021-08-09] MEDS ORDERED: Glycopyrrolate 0.2 MG/ML 2 ML SDV IVPUSH ONE (09:00)
[2021-08-09] MEDS ORDERED: MVI, Adult with Vitamin K 10 ML, Thiamine 200 MG, Chromium/Copper/Mang/Selen/Zn 1 ML in... IV ONE ×4 (09:30)
[2021-08-09] MEDS ORDERED: Alum Hydrox/Mag Hydrox/Simeth 360 ML, Lidocaine 2% 60 ML PO SCH ×2 (12:00)
--- NOTE | 2021-08-10 12:03 | OR ---
DATE OF PROCEDURE: 08/09/2021 SURGEON: Greg Carranza MD PREOPERATIVE DIAGNOSIS: Upper and mid abdominal pain. POSTOPERATIVE DIAGNOSIS: Upper and mid abdominal pain associated with grossly normal examination status post total gastrectomy with Mic-en-Y gastrojejunostomy. OPERATIVE PROCEDURE: Upper GI endoscopy with biopsies of gastric pouch for CLOtest. ANESTHESIA: IV sedation. INDICATIONS FOR PROCEDURE: A 50-year-old female presenting with a picture of ongoing upper and mid abdominal pain. This appears to be somewhat worsened upon eating, but is present for much of the time. The patient is presently on Protonix and Carafate. The plan is to proceed with upper GI endoscopy with biopsies as indicated. Potential risks including bleeding and perforation were discussed, and the patient wishes to proceed. DETAILS OF PROCEDURE: The patient was taken to the operating room, and placed in a left lateral decubitus position. IV sedation was administered after which the upper GI endoscope was passed orally through the length of the esophagus and into the small cuff of remaining gastric mucosa and from there through the anastomosis and into the Mic limb. Overall, the findings were entirely normal grossly. There was no area of inflammation or stricturing present and biopsy was then obtained from the small of remaining stomach and sent for CLOtest for H pylori. Minimal bleeding from the biopsy site was seen, and the procedure was then concluded. The patient requested some of the lidocaine-Maalox compounded mix which she thinks this probably helped somewhat in the past. We will give her a trial of that with 2 bottles being prepared per pharmacy. Overall, findings are somewhat suggestive of a possible more distal partial small bowel obstruction. We will obtain a CT scan of the abdomen and then the patient will be following up with Felicita Meeks following the CAT scan and trial of lidocaine- Maalox mix. If she is continuing to be significantly symptomatic, we may need to proceed with exploration if no other specific findings are seen. Greg Carranza MD Job #: [id number]
== END 2021-08-09 11:55 | disposition home or self-care (01) ==
LOC: JP.SDS 07:51
PROVIDERS: ATTEND Surgery
DX: K21.9 Gastro-esophageal reflux disease without esophagitis (principal); M79.7 Fibromyalgia; Z98.84 Bariatric surgery status
CPT/HCPCS: 43239; 87081; A9270; J2704; J3010; J3411; J3420; J3490; J7120; J2250